=== PATIENT | male | born 1995 | race Caucasian/White ===

== ENCOUNTER 2020-06-20 12:27 | Outpatient (CLI) | payer BC, SELFPAY ==
[2020-06-22 17:04] LABS: SARS-CoV-2 RNA PCR Positive
== END 2020-06-20 12:28 | disposition home or self-care (01) ==
PROVIDERS: PCP Internal Medicine; Visit Provider Internal Medicine
DX: U07.1 COVID-19 (principal)
CPT/HCPCS: 87635; C9803; U0003

== ENCOUNTER 2023-09-28 13:38 | Outpatient (CLI) | payer BC, SELFPAY ==
[2023-09-28 14:03] LABS: Appearance Urine Clear (Clear); Basophils Absolute Auto 0.05 K/mm3 (0.00-0.10); Basophils Percent Auto 0.7 % (0.0-1.0); Bilirubin Urine Negative (Negative); Blood Urine Negative (Negative); Color Urine Yellow (Yellow); Eosinophils Absolute Auto 0.12 K/mm3 (0.02-0.50); Eosinophils Percent Auto 1.6 % (1.0-6.0); Glucose Urine UA Negative (Negative); Hematocrit 47.8 % (40.0-54.0); Hemoglobin 15.7 g/dL (14.0-18.0); Immature Granulocyte Absolute 0.03 K/mm3 (0.00-0.00); Immature Granulocyte Percent A 0.4 % (0.0-0.0); Ketones Urine Negative (Negative); Leukocyte Esterase Ur Negative (Negative); Lymphocytes Absolute Auto 2.62 K/mm3 (1.10-4.50); Lymphocytes Percent Auto 34.9 % (18.0-42.0); Mean Corpuscular HGB Conc 32.8 g/dL (32.0-36.0); Mean Corpuscular Hemoglobin 28.1 pg (27.0-31.0); Mean Corpuscular Volume 85.5 fL (78.0-102.0); Mean Platelet Volume 9.6 fl (8.7-11.0); Monocytes Absolute Auto 0.77 K/mm3 (0.10-0.90); Monocytes Percent Auto 10.3 % (2.0-11.0); Neutrophils Absolute Auto 3.9 K/mm3 (1.7-7.2); Neutrophils Percent Auto 52.1 % (50.0-70.0); Nitrate Urine Negative (Negative); Platelet Count Result 296 K/mm3 (150-420); Protein Urine Negative (Negative); Red Blood Count 5.59 M/mm3 (4.70-6.10); Red Cell Distribution Width 12.3 % (11.6-14.4); Specific Grav Ur 1.025 (1.010-1.020); Urobilinogen Urine 0.2 mg/dL (0.2-1.0); White Blood Count 7.5 K/mm3 (4.8-10.8); pH Urine 6.5 (5.0-8.0)
[2023-09-28 14:05] LABS: Add Urine Microscopic? NO
[2023-09-28 14:13] LABS: Hemoglobin A1C 5.7 % (<5.7)
[2023-09-28 14:44] LABS: Alanine Aminotransferase 142 U/L (16-63); Albumin Level 4.3 g/dL (3.4-5.0); Alkaline Phosphatase 78 U/L (46-116); Anion Gap 9 mmol/L (8-16); Aspartate Amino Transferase 43 U/L (15-37); Bilirubin,Total 1.2 mg/dL (0.00-1.00); Blood Urea Nitrogen 15 mg/dL (7-18); Carbon Dioxide 30 mmol/L (21-32); Chloride 101 mmol/L (98-108); Cholesterol 186 mg/dL (0-200); Estimated Glomerular Filt Rate > 60; Free T3 3.41 pg/mL (2.18-3.98); Free T4 Free Thyroxine 0.78 ng/dL (0.76-1.46); Glucose 77 mg/dL (70-99); HDL Direct 42 mg/dL (40-60); LDL Cholesterol Calculated 101 mg/dL (<130); Osmolality Calculated 289 mOsm/kg (285-295); Potassium 4.3 mmol/L (3.5-5.1); Sodium 140 mmol/L (136-145); Thyroid Stimulating Hormone 1.24 uIU/mL (0.36-3.74); Total Protein 7.7 g/dL (6.4-8.2); Triglycerides 213 mg/dL (0-150)
== END 2023-09-28 13:39 | disposition home or self-care (01) ==
PROVIDERS: PCP Internal Medicine; Visit Provider Internal Medicine
DX: Z00.00 Encounter for general adult medical examination without abnormal findings (principal); N46.8 Other male infertility; I10 Essential (primary) hypertension
CPT/HCPCS: 36415; 80053; 80061; 81003; 83036; 84439; 84443; 84481; 85025; 86038

== ENCOUNTER 2023-09-30 10:25 | Outpatient (CLI) | payer BC, SELFPAY ==
[2023-09-30 10:58] LABS: Liquefaction Semen Complete in 30 min. (<30 minutes); Semen Color Opaque (Grey-opaque); Semen Immotility 50 %; Semen Non-Progressive Motility 10 %; Semen Progressive Motility 40 % (>32); Semen Total Motility 50 (>40% (PM+NP)); Semen Viscosity Not Increased (Not Increa.); Sperm Count 94.8 Mil/mL (60-150 million/mL)
[2023-09-30 10:59] LABS: Semen Morphology Result to Follow
[2023-10-04 00:09] LABS: Fructose, Semen 221 mg/dL (150-600)
== END 2023-09-30 10:26 | disposition home or self-care (01) ==
LOC: CHSLAB 10:27
PROVIDERS: PCP Internal Medicine; Visit Provider Internal Medicine
DX: Z00.00 Encounter for general adult medical examination without abnormal findings (principal); N46.8 Other male infertility; I10 Essential (primary) hypertension
CPT/HCPCS: 82757; 88160; 89320

== ENCOUNTER 2023-10-07 08:02 | Outpatient (CLI) | payer BC, SELFPAY ==
--- NOTE | ~2023-10-07 | US_ITS ---
Limited Abdominal Sonogram: Real-time sonographic imaging of the right upper quadrant was performed. Clinical History: Elevated liver enzymes Findings: The liver appears echogenic, with no evidence of bile duct dilatation. There is a subtle 1 .4 cm hypoechoic area in the liver. Main portal vein demonstrates normal direction of flow. The gallb ladder is well distended, and appears normal with no evidence of gallstone or wall thickening. The co mmon bile duct measures 4 mm. The visualized pancreas, aorta, and IVC are unremarkable. Impression: Diffuse fatty infiltration of liver. Subtle 1.4 cm hypoechoic area in the liver, nonspecific. This could reflect mass lesion versus focal fatty sparing. Pre and postcontrast MR advised to further evaluate. Reviewed, dictated and finalized at location . Impression: Diffuse fatty infiltration of liver. Subtle 1.4 cm hypoechoic area in the liver, nonspecific. This could reflect mas s lesion versus focal fatty sparing. Pre and postcontrast MR advised to further evaluate.
== END 2023-10-07 08:03 | disposition home or self-care (01) ==
LOC: CHSIMG 08:03
PROVIDERS: PCP Internal Medicine; Visit Provider Internal Medicine
DX: R74.01 Elevation of levels of liver transaminase levels (principal); K76.0 Fatty (change of) liver, not elsewhere classified
CPT/HCPCS: 76705

== ENCOUNTER 2023-12-03 07:42 | Outpatient (CLI) | payer BC, SELFPAY ==
--- NOTE | ~2023-12-03 | MR_ITS ---
EXAMINATION: MR abdomen wo/w con DATE: 12/03/2023 09:03 INDICATION: Liver mass. TECHNIQUE: Magnetic resonance imaging (MRI) of the abdomen was performed without and with 20 mL Multi Tiana intravenous contrast. COMPARISON: Abdomen ultrasound 10/07/2023 FINDINGS: There is diffuse hepatic steatosis. The gallbladder, spleen, pancreas, adrenal glands, and kidneys ar e normal. There are no dilated loops of bowel. IMPRESSION: 1. Diffuse hepatic steatosis. No abnormal liver mass. Reviewed, dictated and finalized at location A.
== END 2023-12-03 07:43 | disposition home or self-care (01) ==
LOC: CHSIMG 07:43
PROVIDERS: PCP Internal Medicine; Visit Provider Internal Medicine
DX: R16.0 Hepatomegaly, not elsewhere classified (principal); K76.0 Fatty (change of) liver, not elsewhere classified
CPT/HCPCS: 74183; A9577